=== PATIENT | male | born 1975 | race Caucasian/White ===

== ENCOUNTER 2020-11-17 20:28 | Emergency (ER) | payer OTHER ==
[2020-11-17 20:34] VITALS: BP 121/78; PULSE 111; RESP 18; TEMP 98.2
--- NOTE | 2020-11-17 21:58 | ED ---
General Adult HPI - General Chief complaint: Dizziness Stated complaint: Dizzy Time Seen by Provider: 11/17/20 21:44 Source: patient Mode of arrival: ambulatory Limitations: no limitations - History of Present Illness Initial comments: 45-year-old male patient presents to the emergency department today reporting a hissing sound in his right ear and pressure in his head. Patient states his been going on for the last several days. Initial complaint was dizziness. Patient denies any room spinning or lightheadedness. Denies any chest pain or trouble breathing. Denies nausea or vomiting. Denies any pain in his years. Denies any recent head injury. During my history and physical exam patient stopped Bantle me had ago while [employer] his ride that is currently a little bit longer. I was unable to complete my history or physical exam. - Related Data Allergies Allergy/AdvReac Type Severity Reaction Status Date / Time No Known Allergies Allergy Verified 11/17/20 20:34 Review of Systems ROS Statement: Those systems with pertinent positive or pertinent negative responses have been documented in the HPI. ROS Other: All systems not noted in ROS Statement are negative. Past Medical History Past Medical History: No Reported History History of Any Multi-Drug Resistant Organisms: None Reported Past Surgical History: No Surgical Hx Reported Past Psychological History: Anxiety Smoking Status: Current every day smoker Past Alcohol Use History: None Reported Past Drug Use History: None Reported General Exam Limitations: no limitations General appearance: alert, in no apparent distress Psychiatric exam: Present: anxious Skin exam: Present: normal color Course Vital Signs 11/17/20 20:30 Temperature 98.2 F Pulse Rate 111 H Respiratory 18 Rate Blood Pressure 121/78 O2 Sat by Pulse 98 Oximetry EKG Findings - EKG Comments: EKG Findings:: EKG obtained at 2142 shows sinus tachycardia with a rightward axis, ventricular rate is 1:15, TX interval 122, QRS duration 98, QT 324, QTC 448. No evidence of ST elevation or depression. Medical Decision Making - Medical Decision Making 45-year-old male patient presented to the emergency department today reporting pressure to his head and a hissing sound in his right ear. Patient stopped me in the middle of my history and physical exam and stated he needed to go out my his ride no he was coming to be a little bit longer and he never returned. I was unable to complete my exam or form a diagnosis. Disposition Clinical Impression: Pressure sensation in right ear Disposition: Left Against Medical Advice Condition: Undetermined Referrals: None,Stated [Primary Care Provider] - 1-2 days
== END 2020-11-17 22:05 | disposition left against medical advice (07) ==
LOC: EC 20:28
DX: H93.8X1 Other specified disorders of right ear (principal); Z53.29 Procedure and treatment not carried out because of patient's decision for other reasons; F17.200 Nicotine dependence, unspecified, uncomplicated
CPT/HCPCS: 93005; 99284

== ENCOUNTER 2021-12-01 14:35 | Emergency (ER) | payer OTHER ==
[2021-12-01 15:34] VITALS: BP 114/71; PULSE 84; RESP 18; TEMP 99.1
--- NOTE | 2021-12-01 17:03 | ED ---
General Adult HPI - General Chief complaint: Fever Stated complaint: fever Time Seen by Provider: 12/01/21 16:52 Source: patient Mode of arrival: ambulatory Limitations: no limitations - History of Present Illness Initial comments: 46-year-old male without any past medical history presents to the emergency room for a chief complaint of wanting a COVID-19 test. Patient states he has not been feeling well and wants to be tested. Patient states he has had a fever on and off. He has also had nausea and a cough. He just started a new job 3 days ago and is concerned about spreading his symptoms. He has not had any shortness of breath or chest pain.Patient has no other complaints at this time including shortness of breath, chest pain, abdominal pain, vomiting, headache, or visual changes. - Related Data Allergies Allergy/AdvReac Type Severity Reaction Status Date / Time No Known Allergies Allergy Verified 11/17/20 20:34 Review of Systems ROS Statement: Those systems with pertinent positive or pertinent negative responses have been documented in the HPI. ROS Other: All systems not noted in ROS Statement are negative. Past Medical History Past Medical History: No Reported History History of Any Multi-Drug Resistant Organisms: None Reported Past Surgical History: No Surgical Hx Reported Past Psychological History: Anxiety Smoking Status: Current every day smoker Past Alcohol Use History: None Reported Past Drug Use History: None Reported General Exam Limitations: no limitations General appearance: alert, in no apparent distress Head exam: Present: atraumatic Eye exam: Present: normal appearance, PERRL, EOMI. Absent: scleral icterus ENT exam: Present: normal exam Neck exam: Present: normal inspection, full ROM Respiratory exam: Present: normal lung sounds bilaterally. Absent: respiratory distress, wheezes Cardiovascular Exam: Present: regular rate, normal rhythm, normal heart sounds GI/Abdominal exam: Present: soft, normal bowel sounds. Absent: distended, tenderness Neurological exam: Present: alert Course Vital Signs 12/01/21 15:29 Temperature 99.1 F Pulse Rate 84 Respiratory 18 Rate Blood Pressure 114/71 O2 Sat by Pulse 98 Oximetry Medical Decision Making - Medical Decision Making Vitals are stable. Patient is well appearing. Patient did test positive for COVID-19. At this time is stable for outpatient management. We will start him on vitamins and nausea and cough medication. Patient does not qualify for antibody infusion as we are currently following prioritization guidelines and patient does not meet for this. - Lab Data Lab Results 12/01/21 Range/Units 15:36 Coronavirus (PCR) Detected A (Not Detectd) Disposition Clinical Impression: COVID-19 Disposition: HOME SELF-CARE Condition: Good Instructions (If sedation given, give patient instructions): Fever in Adults (ED), Coronavirus Disease 2019 (COVID-19) Additional Instructions: Please follow up with your doctor in one to 2 days. In the meantime drink plenty of fluids and take vitamin C, D, and zinc [id number]. Return to the emergency room for any worsening symptoms such as worsening shortness of breath. Is patient prescribed a controlled substance at d/c from ED?: No Referrals: Michael Mckeon MD [STAFF PHYSICIAN] - 1-2 days Time of Disposition: 17:02
== END 2021-12-01 17:19 | disposition home or self-care (01) ==
LOC: EC 14:35
DX: U07.1 COVID-19 (principal); F17.200 Nicotine dependence, unspecified, uncomplicated
CPT/HCPCS: 87635; 99283

== ENCOUNTER → 2022-07-09 | Outpatient (CLI) | payer OTHER ==
[2022-07-09 14:30] LABS: Basophils # (A) 0.08 X 10*3/uL (0.00-0.10); Basophils % (A) 1.3 %; Eosinophils # (A) 0.51 X 10*3/uL (0.04-0.35); HCT 41.4 % (39.6-50.0); HGB 14.1 g/dL (13.0-17.0); Immature Grans, Automated 0.3 %; Lymphocytes # (A) 1.35 X 10*3/uL (0.90-5.00); Lymphocytes % (A) 21.2 %; MCH 30.1 pg (27.0-32.0); MCHC 34.1 g/dL (32.0-37.0); MCV 88.3 fL (80.0-97.0); Mean Platelet Volume 11.1 fL (9.5-12.2); Monocytes # (A) 0.41 X 10*3/uL (0.20-1.00); Monocytes % (A) 6.4 %; NRBC Per 100 WBC 0 /100 WBCS (0.0-0.0); Neutrophils # (A) 3.99 X 10*3/uL (1.80-7.70); Neutrophils % (A) 62.8 %; Platelet Count 231 X 10*3/uL (140-440); RBC 4.69 X 10*6/uL (4.40-5.60); RDW 12.3 % (11.5-14.5); WBC 6.36 X 10*3/uL (4.50-10.00)
[2022-07-09 14:59] LABS: ALT 36 U/L (10-49); AST 31 U/L (14-35); African American GFR (CKD) 104.9 (60.0-200.0); Albumin 4.6 g/dL (3.8-4.9); Albumin/Globulin Ratio 1.92 (1.60-3.17); Alkaline Phosphatase 88 U/L (41-126); Blood Urea Nitrogen 25.6 mg/dL (9.0-27.0); Calcium 9.5 mg/dL (8.7-10.3); Carbon Dioxide 25.7 mmol/L (20.0-27.5); Chloride 105 mmol/L (96-109); Chol/HDL Ratio 2.62 Ratio; Globulin 2.4 g/dL (1.6-3.3); Glucose 93 mg/dL (70-110); LDL Cholesterol,Calculated 98.4 mg/dL (0.0-131.0); Non-African American GFR(CKD) 90.5 (60.0-200.0); Potassium 4.6 mmol/L (3.5-5.5); Rheumatoid Factor, Qnt <10 IU/mL (0-15); Sodium 140 mmol/L (135-145)
[2022-07-09 19:39] LABS: Erythrocyte Sedimentation Rate 14 mm/Hr (0-15)
[2022-07-10 10:56] LABS: HLA B27 NEGATIVE
== END | disposition home or self-care (01) ==
LOC: LABWHC1 10:22
PROVIDERS: ATTEND Family Medicine
DX: I10 Essential (primary) hypertension (principal); Z79.899 Other long term (current) drug therapy
CPT/HCPCS: 36415; 80053; 80061; 83036; 84443; 85025; 85652; 86431; 86812

== ENCOUNTER → 2022-07-09 | Outpatient (CLI) | payer OTHER ==
--- NOTE | 2022-07-09 12:05 | XR ---
EXAMINATION TYPE: XR lumbar spine 2 or 3V DATE OF EXAM: 07/09/2022 COMPARISON: None HISTORY: Back pain TECHNIQUE: 3 view lumbar spine FINDINGS: Spondylosis is present at L4. Disc heights are preserved. Vertebral body heights are preser hazel. There are 5 lumbar-type vertebral bodies. The pedicles are intact. MRI could be performed if add itional evaluation of soft tissues would be of benefit. IMPRESSION: 1. No acute osseous abnormality lumbar spine.
--- NOTE | 2022-07-09 12:30 | XR ---
EXAMINATION TYPE: XR Hip Bilateral Complete DATE OF EXAM: 07/09/2022 COMPARISON: None HISTORY: Hip pain TECHNIQUE: Bilateral hips are examined in 2 projections each. FINDINGS: Femoral heads articulate with the acetabulum. Some CAM deformity is likely present bilatera lly more so on the left. There is loss of joint space on the right. Some narrowing of the left hip jaciel int space is present. Follow up studies can be performed 7-10 days from acute trauma for continued pain. IMPRESSION: 1. Mild left and moderate right degenerative joint changes at the hips.
== END | disposition home or self-care (01) ==
LOC: RADXRMAIN 10:35
PROVIDERS: ATTEND Family Medicine
DX: M54.50 Low back pain, unspecified (principal)
CPT/HCPCS: 72100; 73521

== ENCOUNTER 2022-08-13 21:28 | Emergency (ER) | payer OTHER ==
--- NOTE | 2022-08-13 23:14 | ED ---
Abdominal Pain HPI - General Chief Complaint: Abdominal Pain Stated Complaint: lump in abd Time Seen by Provider: 08/13/22 22:30 Source: patient, RN notes reviewed Mode of arrival: ambulatory Limitations: no limitations - History of Present Illness Initial Comments: Patient is a 46-year-old male presents the emergency room with complaints of intermittent abdominal pain to the mid epigastric region in which she was previously told that he had a lipoma and feels like the area of concern has grown. He denies any abdominal pain at this time, nausea, vomiting, chest pain, shortness of breath, unintentional weight loss, blood in his stool, changes in bowel movements, fevers or chills. He has no significant past medical history and does not take any medications on a regular basis. - Related Data Previous Rx's Medication Instructions Recorded Benzonatate [Tessalon Perles] 200 mg PO Q8H PRN #15 capsule 12/01/21 Ondansetron [Zofran ODT] 4 mg PO Q8HR PRN #15 tab 12/01/21 Allergies Allergy/AdvReac Type Severity Reaction Status Date / Time No Known Allergies Allergy Verified 08/13/22 21:38 Review of Systems ROS Statement: Those systems with pertinent positive or pertinent negative responses have been documented in the HPI. ROS Other: All systems not noted in ROS Statement are negative. Past Medical History Past Medical History: No Reported History History of Any Multi-Drug Resistant Organisms: None Reported Past Surgical History: No Surgical Hx Reported Past Psychological History: Anxiety Smoking Status: Former smoker Past Alcohol Use History: None Reported Past Drug Use History: None Reported General Exam General appearance: alert, in no apparent distress Head exam: Present: atraumatic, normocephalic, normal inspection Eye exam: Present: normal appearance, PERRL, EOMI. Absent: scleral icterus, conjunctival injection, periorbital swelling ENT exam: Present: normal exam, mucous membranes moist Neck exam: Present: normal inspection, full ROM. Absent: tenderness, lymphadenopathy Respiratory exam: Present: normal lung sounds bilaterally. Absent: respiratory distress, wheezes, rales, rhonchi, stridor Cardiovascular Exam: Present: regular rate, normal rhythm, normal heart sounds. Absent: systolic murmur, diastolic murmur, rubs, gallop, clicks GI/Abdominal exam: Present: soft, normal bowel sounds. Absent: distended, tenderness, guarding, rebound, rigid, mass, hernia Rectal exam: Present: deferred Extremities exam: Present: normal inspection. Absent: pedal edema, joint swelling Back exam: Present: normal inspection Neurological exam: Present: alert, oriented X3, CN II-XII intact Psychiatric exam: Present: normal affect, normal mood Skin exam: Present: warm, dry, intact, normal color. Absent: rash Course Vital Signs 08/13/22 08/14/22 21:38 01:25 Temperature 98.1 F 98.0 F Pulse Rate 60 65 Respiratory 16 18 Rate Blood Pressure 122/83 122/84 O2 Sat by Pulse 98 99 Oximetry Medical Decision Making - Medical Decision Making 46-year-old male presenting with intermittent abdominal pain and concern for growing lipoma. No significant evidence of lipoma or hernia on exam. Due to intermittent C and patient concern will proceed with CT of the abdomen and pelvis. No indication for laboratory studies. Denies pain at this time no need for analgesics. Denies nausea at this time no need for antibiotics. CT the abdomen negative no evidence of epigastric mass, hernia or lipoma. Findings discussed with patient. Will discharge home with follow-up with his primary care provider. Reassurance given. Case discussed with Dr. Chu - Radiology Data Radiology results: report reviewed, image reviewed CT of the abdomen and pelvis impression: Negative computed tomography scan abdomen and pelvis. No evidence of epigastric mass no signs of lipoma. Disposition Clinical Impression: Intermittent upper abdominal pain Disposition: HOME SELF-CARE Condition: Stable Instructions (If sedation given, give patient instructions): Abdominal Pain (ED) Additional Instructions: Please follow-up with your primary care provider. Please return to the Emergency Department if symptoms worsen or any other concerns. Is patient prescribed a controlled substance at d/c from ED?: No Referrals: Michael Mckeon MD [Primary Care Provider] - 1-2 days Time of Disposition: 00:38
--- NOTE | 2022-08-14 00:06 | CT ---
EXAMINATION TYPE: CT abdomen pelvis wo con DATE OF EXAM: 08/13/2022 COMPARISON: None HISTORY: upper abdominal pain and swelling. Pt. 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 Images obtained from the diaphragm to the floor the pelvis with no contrast. Lung bases are clear. No pleural effusion. Heart size is normal. No pericardial effusion. Liver and s pleen are intact. Stomach is intact. There is no pancreatic mass. Gallbladder appears normal. The cas e ducts are not dilated. There is no adrenal mass. Kidneys have normal size. No hydronephrosis. Urete rs are not dilated. No retroperitoneal adenopathy. The bladder distends smoothly. No inguinal hernia. No free fluid in the pelvis. No mesenteric edema. No ascites or free air. No sign of a bowel obstruction. Appendix is folded on it self and appears normal. The lumbar vertebra have normal alignment. No compression fracture. Abdominal aorta is atheromatous. The bony pelvis is intact. The hip joints are intact. Sacroiliac joints are intact. There is some spu rring of the acetabula. IMPRESSION: Negative CT scan abdomen and pelvis. No evidence of an epigastric mass. No sign of a lipoma.
[2022-08-14 01:27] VITALS: BP 122/84; PULSE 65; RESP 18; TEMP 98
== END 2022-08-14 01:45 | disposition home or self-care (01) ==
LOC: EC 21:28
DX: R10.13 Epigastric pain (principal); F41.9 Anxiety disorder, unspecified; Z87.891 Personal history of nicotine dependence; Z79.899 Other long term (current) drug therapy
CPT/HCPCS: 74176; 99284

== ENCOUNTER → 2022-10-27 | Day surgery (SDC) | payer OTHER ==
[~2022-10-27] MED LIST: ACETAMINOPHEN TAB 500 MG TAB PO PRN; BUPIVACAIN-EPI 0.25%-1:200,000 30 ML VIAL SQ ONE; DEXAMETHASONE SOD PHOSPHATE 4 MG/ML 1 ML VIAL IV ONE; GLYCOPYRROLATE 0.2 MG/ML 2 ML VIAL ONE; HEPARIN SODIUM,PORCINE/PF 5,000 UNIT/0.5 ML SYRINGE SQ PRN; HYDROmorphone 0.5 MG/0.5 ML SYRINGE IVP PRN; KETAMINE 10 MG/ML 20 ML VIAL ONE; KETOROLAC 15 MG/ML 1 ML VIAL ONE; LACTATED RINGERS 1,000 ML IV ONE; LACTATED RINGERS 1,000 ML IV SCH; LIDOCAINE 1% (10MG/ML) FOR IV START INTRADERMA PRN; LIDOCAINE 2% INJ 20 MG/ML (2 ML VIAL) ONE; MIDAZOLAM 2 MG/2 ML VIAL IV PRN; MIDAZOLAM 2 MG/2 ML VIAL IVP ONE; NEOSTIGMINE 1 MG/ML 10 ML VIAL ONE; ONDANSETRON 4 MG/2 ML VIAL IVP ONE; PROPOFOL 10 MG/ML 20 ML VIAL IV ONE; ROCURONIUM 10 MG/ML (5 ML VIAL) IV ONE; ROPIVACAINE 5 MG/ML 30 ML VIAL ONE; SODIUM CHLORIDE 0.9% (PF) 10 ML VIAL ONE; SUCCINYLCHOLINE CHLORIDE 200 MG/10 ML VIAL IV ONE; ePHEDrine 50 MG/ML 1 ML VIAL ONE; fentaNYL (PF) 50 MCG/1 ML VIAL IVP ONE; fentaNYL (PF) 50 MCG/ML 2 ML AMP ONE
[2022-10-27 08:21] LABS: Glucose,Whole Blood 108 mg/dL (70-110)
--- NOTE | 2022-10-27 08:24 | P.GSHP ---
History of Present Illness H&P Date: 10/27/22 Chief Complaint: Incarcerated ventral hernia Is a 47-year-old male who's developed an incarcerated ventral hernia in the mid epigastric area. Patient developed a tender mass measured prostate 4 cm diameter. Past Medical History Past Medical History: Sleep Apnea/CPAP/BIPAP Additional Past Medical History / Comment(s): seasonal allergies, probable sleep apnea-no sleep study yet, right hip pain History of Any Multi-Drug Resistant Organisms: None Reported Past Surgical History: No Surgical Hx Reported Additional Past Anesthesia/Blood Transfusion Reaction / Comment(s): pt. has never had anes, no family problems w/that he knows of Smoking Status: Former smoker - Past Family History Mother Family Medical History: No Reported History Medications and Allergies Home Medications Medication Instructions Recorded Confirmed Type Fexofenadine HCl [Ladi Allergy] 180 mg PO DAILY 10/26/22 10/26/22 History Meloxicam [Mobic] 15 mg PO DAILY 10/26/22 10/26/22 History Montelukast [Singulair] 10 mg PO DAILY 10/26/22 10/26/22 History rOPINIRole HCL [Requip] 1 mg PO HS 10/26/22 10/26/22 History Allergies Allergy/AdvReac Type Severity Reaction Status Date / Time No Known Allergies Allergy Verified 10/27/22 07:54 Surgical - Exam Vital Signs Temp Pulse Resp BP Pulse Ox 97.5 F L 56 L 16 125/61 98 10/27/22 07:59 10/27/22 07:59 10/27/22 07:59 10/27/22 07:59 10/27/22 07:59 - General well developed, well nourished, no distress - Eyes PERRL - ENT normal pinna - Neck no masses - Respiratory normal expansion - Cardiovascular Rhythm: regular - Abdomen 4 cm incarcerated ventral hernia located in the mid epigastric center. Patient has a tattoo on the sanders Thrasher on his abdominal wall. The hernia is in between the oh and the ES Abdomen: soft Assessment and Plan Plan: Incarcerated ventral hernia. We'll perform laparoscopic robotic-assisted repair.
--- NOTE | 2022-10-27 09:50 | P.OP ---
Date of Procedure: 10/27/22 Preoperative Diagnosis: Incarcerated ventral hernia Postoperative Diagnosis: Pressure ventral hernia Procedure(s) Performed: Laparoscopic robotic-assisted repair of incarcerated ventral hernia Partial omentectomy Transversus abdominis plane block Anesthesia: VERONICA Surgeon: Micah Feldman Pathology: other (Incarcerated omentum) Condition: stable Disposition: PACU Description of Procedure: TThe patient was placed on the operating table in the supine position. He received general anesthesia. His abdomen was prepped and draped usual fashion. Using a 5 mm optical trocar under direct visualization the peritoneal cavity was entered in the infraumbilical position. The abdomen was then insufflated. The laparoscope was placed back into the perineal cavity. Next a 8 mm robotic trocar was placed in the left lower quadrant and a 8 mm trocar was placed in the right lower quadrant.. The original 5 mm trocar was exchanged for a 12 mm robotic trocar. A four-quadrant transversus abdominis plane block was performed using 1% local Xylocaine. The patient was docked the robot The ventral hernia was visualized. Using hook cautery the peritoneum over the incisional hernia was excised. Incarcerated omentum and hernia sac was dissected free sent to pathology. The fascial opening was repaired using 0V LOC suture. Next a piece of 11 cm round ventral light ST mesh was placed into the. Cavity and secured with 2 OV lock suture. The patient was undocked the robot. The needles were retrieved. The fascia of the 12 mm trocar site was closed with 0 Ethibond suture. Skin was closed interrupted 3-0 Monocryl suture. Dermabond dressings was applied. Patient tolerated procedure well and was sent to recovery room stable condition.
[2022-10-27 09:53] VITALS: TEMP 96.9
[2022-10-27 11:44] VITALS: RESP 20
[2022-10-27 13:55] VITALS: BP 145/84; PULSE 56
--- NOTE | 2022-10-27 14:12 | P.ANPRN ---
Procedure Note - Anesthesia - Nerve Block Performed Bilateral Rectus Abdominis Time Out Performed: Yes (:) Date of Procedure: 10/27/22 Procedure Start Time: Procedure Stop Time: : Location of Patient: PreOp Indication: Acute Post-Operative Pain, Requested by Surgeon (Dr Feldman) Sedation Type: Sedate with meaningful contact maintained Preparation: Sterile Prep Position: Supine Catheter: None Needle Types: Pajunk Needle Gauge: 21 Ultrasound used to visualize needle placement: Yes Ultrasound used to observe medication spread: Yes Injectate: 0.5% Ropivacaine (see comment for volume) (15cc +5cc PF Normal saline each side) Blood Aspirated: No Pain Paresthesia on Injection Noted: No Resistance on Injection: Normal Image Stored and Saved: Yes Events: Uneventful and Well Tolerated
== END ==
LOC: OR 07:28
PROVIDERS: ATTEND Surgery
DX: K43.6 Other and unspecified ventral hernia with obstruction, without gangrene (principal); G47.33 Obstructive sleep apnea (adult) (pediatric); N42.9 Disorder of prostate, unspecified; Z87.891 Personal history of nicotine dependence; Z79.1 Long term (current) use of non-steroidal anti-inflammatories (NSAID); Z79.83 Long term (current) use of bisphosphonates; Z79.899 Other long term (current) drug therapy
CPT/HCPCS: 49653; 64488; 64486 ×2; C1781; J2250; J0330; J1100; J2710; J0690; J2405; J3010 ×2; J2795; J1885; J2704; J1644; J2001; 88305

== ENCOUNTER → 2024-01-31 | Outpatient (CLI) | payer BC, OTHER ==
--- NOTE | 2024-01-31 13:28 | MR ---
EXAMINATION TYPE: MR lumbar spine wo con DATE OF EXAM: 01/31/2024 12:25 PM CLINICAL INDICATION:Male, 48 years old with history of M47.896 LUMBAR SPONDYLOSIS; PHH, Low back pain and tightness , Hip pain mostly on right COMPARISON: 08/13/2022 TECHNIQUE: Multi planar, multi sequence imaging was performed utilizing: T1-weighted, T2-weighted, a nd turbo inversion recovery imaging of the lumbar spine. IV Contrast: cc . (None if empty) FINDINGS: Alignment: The lumbar vertebral bodies have preserved heights and alignment. Cord: The conus medullaris and the distal spinal cord appear unremarkable with regards to their signa l intensity and morphology. Bones/Discs: Mild degeneration changes throughout the spine with osteophyte formation and facet joint arthropathy. Multilevel disc desiccation is present. T12-L1: No evidence of significant spinal canal stenosis or neural foraminal stenosis. L1-L2: No evidence of significant spinal canal stenosis or neural foraminal stenosis. L2-L3: No evidence of significant spinal canal stenosis or neural foraminal stenosis. L3-L4: Disc bulge and facet joint arthropathy result in moderate severe spinal canal and moderate cas ateral neural foraminal stenosis. L4-L5: Disc bulge and facet joint arthropathy result in mild spinal canal and moderate bilateral neur al foraminal stenosis. L5-S1: The disc is rounded posterior morphology without significant spinal canal stenosis. Facet join t arthropathy with mild bilateral neural foraminal stenosis. No significant spinal canal or neural foraminal stenosis in the remainder of the visualized levels. Other findings: None. IMPRESSION: Degeneration changes with moderate to severe L3-L4 spinal canal stenosis secondary disc bulge and fac et joint arthropathy and moderate bilateral neural foraminal stenosis. Additional degeneration with m oderate bilateral L4-L5 neural foraminal stenosis.
== END | disposition home or self-care (01) ==
LOC: RADMRIMAIN 11:37
PROVIDERS: ATTEND Family Medicine
DX: M47.896 Other spondylosis, lumbar region (principal); M47.816 Spondylosis without myelopathy or radiculopathy, lumbar region; M99.73 Connective tissue and disc stenosis of intervertebral foramina of lumbar region; M48.061 Spinal stenosis, lumbar region without neurogenic claudication; M51.36 Other intervertebral disc degeneration, lumbar region
CPT/HCPCS: 72148

== ENCOUNTER → 2024-03-01 | Outpatient (CLI) | payer BC ==
[2024-03-01 09:13] VITALS: BP 150/71; PULSE 69; RESP 16; TEMP 98.1
--- NOTE | 2024-03-01 13:31 | P.PAINPG ---
Objective - Vital Signs Vital signs: Intake & Output 02/29/24 03/01/24 03/01/24 18:59 06:59 18:59 Weight 84.368 kg PQRS Measure Charge Sheet Comment: HISTORY OF PRESENT ILLNESS: A 48 yr old male as a referral from Dr Mckeon presents today w severe and chronic LBP > 2 yrs secondary to DDD, spondylosis and facet arthropathy without myelopathy for evaluation. Pt states pain level is provoked at 9 /10 in intensity, constant, localized in the lumbar spine, predominantly axial, achy in character w occasional shooting pain towards the R hip. Pain is provoked by twisting. Pain is alleviated by medications (Ibu, Lidoderm), Icy Hot topical, heat, manual massage, repositioning and rest. Oswestry axial pain score at 19. PMH: OA, NATALIA, Seasonal Allergies PSH: DENIES SH: Former tobacco user, No ETOH abuse, No illicit drug use FH: Mo- No Reported History All: See list Meds: See list REVIEW OF ORGAN SYSTEMS: CONSTITUTIONAL: No fevers or chills. No recent weight loss. NEUROLOGICAL: + numbness and tingling along the distal extremities. No seizure disorders or headaches. MUSCULOSKELETAL: + pain PSYCHIATRIC: Denies current depression or suicidal thoughts. Physical Examinations : Constitutional : Cooperative , not in acute distress . Neurologic : Cranial nerve II to XII intact. No focal neurological deficits. Psychiatric : alert & oriented x 3. Matching mood & appropriate affect. Judgment & insight intact. Musculoskeletal : Cervical Spine Motor strength in the deltoid and biceps: Normal right side. Normal Left side Motor strength biceps and the wrist extensors: Normal right side . Normal left side Motor strength in the triceps muscle: Normal right side. Normal left side Deep tendon reflexes: Normal at the biceps. Normal at Brachioradialis. Normal at triceps Vertebral body tenderness to deep palpation over Cervical facet loading test: positive bilaterally Spurling test: positive bilaterally Neck distraction test: positive bilaterally Karthik sign: positive bilaterally Lumbar spine Motor strength lower extremities ,thigh and legs 5/5 Right side , 5/5 Left side Deep tendon reflexes : Normal Knee Jerk. Normal Ankle Jerk Vertebral body tenderness over Ruiz Test positive L3 Lumbar facet Loading Test: positive Right / positive Left Range of motion of the lumbar spine Flexion 30 degrees, extension 10 degrees Straight Leg Raise test: Left/ Right positive at degrees Alden test: positive right / positive left. Severe tenderness over the Sacroiliac joint on the Right / Left sides Gaenslen test: positive bilaterally Seated flexion test: positive bilaterally. Sacral spine : Severe tenderness over the Sacroiliac joint: right side / left side Range of motion: Flexion of the lumbar spine <60 degrees Range of motion: Extension of the lumbar spine <20 degrees Gaenslen's Test positive Alden test: positive right side / left side Thigh Thrust Test Sacral Thrust Test Imaging: MRI noncontrast of the lumbar spine from 01/31/2024 reviewed Assessment/ Plan : L3-L4 severe spinal canal stenosis Recommendation of PT x 6 wks M51.36 and follow up for a re evaluation. All questions answered. I have spent greater than 30 minutes on patient care today. Dr Lu was available by phone for the evaluation of this patient. The time was used to review the medical records including relevant urine studies and Prescription history (MAPs), review of the available imaging, evaluation and examination of the patient, coordination of care with the medical staff and if applicable referring physicians, as well as creation of the medical record Home Medications: Ambulatory Orders Fexofenadine HCl [Ladi Allergy] 180 mg PO DAILY 10/26/22 Meloxicam [Mobic] 15 mg PO DAILY 10/26/22 Montelukast [Singulair] 10 mg PO DAILY 10/26/22 rOPINIRole HCL [Requip] 1 mg PO HS 10/26/22 Acetaminophen Tab [Tylenol] 650 mg PO Q6H #30 tab 10/27/22 Docusate [Colace] 100 mg PO BID #20 capsule 10/27/22 Ibuprofen [Motrin] 600 mg PO Q6HR PRN #40 tab 10/27/22 oxyCODONE HCL [OxyIR] 5 mg PO Q6H PRN 3 Days #10 tab 10/27/22 Controlled Substance Measures - Controlled Substance Measures Is patient prescribed a controlled substance at discharge?: No
== END ==
LOC: PNWHC3 08:01
PROVIDERS: ATTEND Specialist
DX: M48.061 Spinal stenosis, lumbar region without neurogenic claudication (principal); M47.16 Other spondylosis with myelopathy, lumbar region
CPT/HCPCS: 99211

== ENCOUNTER → 2024-06-19 | Outpatient (CLI) | payer BC | END | disposition home or self-care (01) | LOC: LABPRL 12:31 | PROVIDERS: ATTEND Dermatology MOHS-Micrographic Surgery | DX: L70.0 Acne vulgaris (principal); K13.0 Diseases of lips; Z79.899 Other long term (current) drug therapy | CPT/HCPCS: 82465; 84450; 84460; 84478 ==